=== PATIENT | female | born 1975 | race Caucasian/White ===

== ENCOUNTER 2017-02-19 19:39 | Emergency (ER) | payer BC ==
[2017-02-19] MEDS ORDERED: KETOROLAC TROMETHAMINE INJ 60 MG/2 ML VIAL IM ONE (21:38)
[2017-02-19] MEDS ORDERED: TETANUS,DIPHTHERIA,PERTUSSIS 1 EA SYG IM ONE (21:39)
--- NOTE | 2017-02-19 22:31 | RAD ---
EXAM DESCRIPTION: Hand left 3 Views (accession [id number]), Wrist, left 2 Views (accession [id number]), Forearm, left (accession [id number]) CLINICAL HISTORY: fell onto left hand pain COMPARISON: None. FINDINGS: AP, lateral and oblique views of the left wrist and hand, and two views of the left forearm were submitted. There is no discrete acute fracture or dislocation. Bone mineralization is within normal limits. There is no radiopaque foreign body material. IMPRESSION: No acute fracture or dislocation. Electronically signed by: Grayson Javier MD 02/19/2017 10:30 PM CDT
--- NOTE | 2017-02-19 22:32 | RAD ---
EXAM DESCRIPTION: Hand left 3 Views (accession [id number]), Wrist, left 2 Views (accession [id number]), Forearm, left (accession [id number]) CLINICAL HISTORY: fell onto left hand pain COMPARISON: None. FINDINGS: AP, lateral and oblique views of the left wrist and hand, and two views of the left forearm were submitted. There is no discrete acute fracture or dislocation. Bone mineralization is within normal limits. There is no radiopaque foreign body material. IMPRESSION: No acute fracture or dislocation. Electronically signed by: Grayson Javier MD 02/19/2017 10:30 PM CDT
--- NOTE | 2017-02-19 22:32 | RAD ---
EXAM DESCRIPTION: Hand left 3 Views (accession [id number]), Wrist, left 2 Views (accession [id number]), Forearm, left (accession [id number]) CLINICAL HISTORY: fell onto left hand pain COMPARISON: None. FINDINGS: AP, lateral and oblique views of the left wrist and hand, and two views of the left forearm were submitted. There is no discrete acute fracture or dislocation. Bone mineralization is within normal limits. There is no radiopaque foreign body material. IMPRESSION: No acute fracture or dislocation. Electronically signed by: Grayson Javier MD 02/19/2017 10:30 PM CDT
--- NOTE | 2017-02-19 22:56 | ED.PDOC ---
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 She now has severe pain in the right wrist. She is unable to move her thumb. She has numbness i her thumb. Timing/Duration: 1-3 hours Severity: severe Improving Factors: immobilization Worsening Factors: movement Associated Symptoms: denies symptoms Allergies/Adverse Reactions: Allergies NO KNOWN ALLERGY Allergy (Verified 02/19/17 20:53) Home Medications: Ambulatory Orders Adderall 02/19/17 Estrogens, Conjugated 02/19/17 Lisinopril & Hydrochlorothiazi [Lisinopril/Hctz 10-12.5 mg] 1 tab PO 02/19/17 Metformin HCl 500 mg PO 02/19/17 Paxil 02/19/17 Simvastatin 02/19/17 Temazepam 30 mg PO 02/19/17 tiZANidine [Zanaflex] 4 mg PO TID PRN #30 tab 02/19/17 Review of Systems - Review of Systems Constitutional: States: no symptoms reported EENTM: States: no symptoms reported Respiratory: States: no symptoms reported Cardiology: States: no symptoms reported Gastrointestinal/Abdominal: States: no symptoms reported Genitourinary: States: no symptoms reported Musculoskeletal: States: joint pain, joint swelling, muscle pain Skin: States: change in color Neurological: States: numbness, tingling Endocrine: States: no symptoms reported Hematologic/Lymphatic: States: no symptoms reported All other Systems: Reviewed and Negative Past Medical History (General) - Patient Medical History Hx Hypertension: Yes Hx Diabetes: Yes - Vaccination History Hx Tetanus, Diphtheria Vaccination: No - over 8 years ago Hx Influenza Vaccination: Yes - Female History Patient is a Female of Child Bearing Age (10 -59 yrs old): No Patient : No - hysterectomy Family Medical History - Family History Mother Family History: Unknown Physical Exam - Physical Exam General Appearance: Alert, Comfortable, Obvious distress - Holding her right wrist so it won't move. Ears, Nose, Throat: hearing grossly normal, normal ENT inspection Neck: full range of motion, supple Respiratory: lungs clear, normal breath sounds, no respiratory distress, no accessory muscle use Cardiovascular/Chest: regular rate, rhythm, no edema, no murmur Gastrointestinal/Abdominal: normal bowel sounds, non tender, soft, no organomegaly Back Exam: no vertebral tenderness Extremity: inflammation, swelling, other - Right wrist--ecchymosis and swelling to the thenar area of the hand. Decreased ROM of her thumb due to pain. She is able to move her fingers. Her elbow has normal ROM. Neurologic: alert, normal mood/affect, oriented x 3 Skin Exam: other - Significant ecchymosis to thenar right wrist/hand Progress - Progress Progress: 02/19/17 22:59 Patient was put in a wrist splint. We discussed that x-rays do not evaluate tendons and if she should have continuing pain and decreased ROM, she needs to follow up with either her PCP or Ortho. At the end of her stay, Patient noted that she had some neck stiffness. She continued to have full ROM of the neck and no vertebral tenderness. She had mild paraspinal muscle spasm. Therefore, I will give her a muscle relaxer for the muscle spasm. - Results/Orders Results/Orders: 02/19/17 20:49 Temperature 98.8 F Pulse Rate [ 90 Right] Respiratory 16 Rate Blood Pressure 127/96 [Left Arm] O2 Sat by Pulse 96 Oximetry - EKG/XRAY/CT XRAY: hand - Right - No fractures - Additional EKG/XRAY/Consults XRAY #2: wrist Comments: Right - no fracture XRAY #3: forearm - Right - no fracture Departure - Departure Clinical Impression: Right wrist sprain Qualifiers: Encounter type: initial encounter Qualified Code(s): S63.501A - Unspecified sprain of right wrist, initial encounter Neck muscle strain Qualifiers: Encounter type: initial encounter Qualified Code(s): S16.1XXA - Strain of muscle, fascia and tendon at neck level, initial encounter Time of Disposition: 23:03 Disposition: Discharge to Home or Self Care Condition: Excellent Departure Forms: ED Discharge - Pt. Copy, Patient Portal Self Enrollment Instructions: Wrist Sprain, DI for Wrist Sprain, Neck Sprain, DI for Neck Sprain Diet: resume usual diet Referrals: Manuel Quinones MD [Primary Care Provider] - 1-2 Weeks Prescriptions: tiZANidine [Zanaflex] 4 mg PO TID PRN #30 tab PRN Reason: Muscle Spasms Home Medications: Ambulatory Orders Adderall 02/19/17 Estrogens, Conjugated 02/19/17 Lisinopril & Hydrochlorothiazi [Lisinopril/Hctz 10-12.5 mg] 1 tab PO 02/19/17 Metformin HCl 500 mg PO 02/19/17 Paxil 02/19/17 Simvastatin 02/19/17 Temazepam 30 mg PO 02/19/17 tiZANidine [Zanaflex] 4 mg PO TID PRN #30 tab 02/19/17 Additional Instructions: Follow up with PCP if symptoms persist. Follow up in ED for pain not relieved with analgesics.
[2017-02-19 23:30] VITALS: BP 124/72; TEMP 97.5; O2SAT 98
== END 2017-02-19 23:32 | disposition home or self-care (01) ==
LOC: ER 19:39
DX: S63.501A Unspecified sprain of right wrist, initial encounter (principal); S16.1XXA Strain of muscle, fascia and tendon at neck level, initial encounter; I10 Essential (primary) hypertension; E11.9 Type 2 diabetes mellitus without complications; Z79.899 Other long term (current) drug therapy; Z23 Encounter for immunization; W01.0XXA Fall on same level from slipping, tripping and stumbling without subsequent striking against object, initial encounter; Y92.9 Unspecified place or not applicable

== ENCOUNTER → 2017-02-26 | Outpatient (CLI) | payer BC | END | disposition home or self-care (01) | LOC: LAB.O 15:20 | PROVIDERS: ATTEND Obstetrics & Gynecology | DX: R53.81 Other malaise (principal); R19.5 Other fecal abnormalities ==

== ENCOUNTER → 2017-07-21 | Outpatient (CLI) | payer BC ==
--- NOTE | 2017-07-23 14:37 | RAD ---
EXAM DESCRIPTION: Knee,Left 2 or More Views CLINICAL HISTORY: 41 years, Female, JOINT PAIN COMPARISON: None TECHNIQUE: AP/lateral views of the left knee FINDINGS: There is no bone, joint, or soft tissue abnormality observed. IMPRESSION: 1. Normal Electronically signed by: Jasiel Shah MD 07/23/2017 2:36 PM CDT
--- NOTE | 2017-07-23 14:37 | RAD ---
EXAM DESCRIPTION: Foot,Right 3 Views CLINICAL HISTORY: 41 years, Female, JOINT PAIN COMPARISON: None TECHNIQUE: AP, lateral, and oblique views of the right foot FINDINGS: There is no bone, joint, or soft tissue abnormality observed. There is no radiopaque foreign body. IMPRESSION: Normal Electronically signed by: Jasiel Shah MD 07/23/2017 2:35 PM CDT
--- NOTE | 2017-07-23 14:38 | RAD ---
EXAM DESCRIPTION: Knee,Right 2 or More Views CLINICAL HISTORY: 41 years, Female, JOINT PAIN COMPARISON: None TECHNIQUE: AP/lateral standing views of the right knee FINDINGS: There is no bone, joint, or soft tissue abnormality observed. IMPRESSION: 1. Normal Electronically signed by: Jasiel Shah MD 07/23/2017 2:36 PM CDT
--- NOTE | 2017-07-23 14:38 | RAD ---
EXAM DESCRIPTION: Hand,Right 2 Views (accession [id number]), Hand,Left 2 Views (accession [id number]) CLINICAL HISTORY: 41 years,Female,JOINT PAIN COMPARISON: None FINDINGS: The bilateral hand demonstrates no evidence of fractures or acute abnormalities. Soft tissues appear unremarkable. Joints unremarkable IMPRESSION: Unremarkable bilateral hands Electronically signed by: Kwan Forbes MD 07/23/2017 2:36 PM CDT
--- NOTE | 2017-07-23 14:38 | RAD ---
EXAM DESCRIPTION: Hand,Right 2 Views (accession [id number]), Hand,Left 2 Views (accession [id number]) CLINICAL HISTORY: 41 years,Female,JOINT PAIN COMPARISON: None FINDINGS: The bilateral hand demonstrates no evidence of fractures or acute abnormalities. Soft tissues appear unremarkable. Joints unremarkable IMPRESSION: Unremarkable bilateral hands Electronically signed by: Kwan Forbes MD 07/23/2017 2:36 PM CDT
--- NOTE | 2017-07-23 14:38 | RAD ---
EXAM DESCRIPTION: Foot,Left 3 Views CLINICAL HISTORY: 41 years, Female, JOINT PAIN COMPARISON: None TECHNIQUE: AP, lateral, and oblique views of the left foot FINDINGS: There is no bone, joint, or soft tissue abnormality observed. There is no radiopaque foreign body. IMPRESSION: Normal left foot Electronically signed by: Jasiel Shah MD 07/23/2017 2:37 PM CDT
== END | disposition home or self-care (01) ==
LOC: LAB.O 12:51
PROVIDERS: ATTEND Obstetrics & Gynecology
DX: M25.562 Pain in left knee (principal); R73.02 Impaired glucose tolerance (oral); M25.561 Pain in right knee; M79.642 Pain in left hand; M79.641 Pain in right hand; M79.672 Pain in left foot; M79.671 Pain in right foot

== ENCOUNTER → 2018-01-25 | Outpatient (CLI) | payer BC ==
--- NOTE | 2018-01-28 10:13 | MAM ---
EXAM DESCRIPTION: 3D Screening BILATERAL : Digital Mammography. CLINICAL HISTORY: 42 years Female SCREENING . No complaints. No family history of breast cancer. Hysterectomy. Currently on HRT. Benign left breast biopsy.. COMPARISON: No prior studies available. No prior reports available. TECHNIQUE: Bilateral CC and MLO projection full-field images, 3-D tomosynthesis digital mammographic technique. Also bilateral synthesized CC/ MLO full-field images. CAD not utilized. FINDINGS: The breast parenchymal density pattern is: Heterogeneously dense breast tissue, which may obscure small masses. No skin thickening or nipple retraction bilateral solitary microcalcifications. Left breast axillary lymph node. No focal, stellate mass or density, focal asymmetry , and no suspicious microcalcifications bilaterally. IMPRESSION: BI-RADS CATEGORY: 2 - BENIGN FINDINGS. FOLLOW UP: Routine digital bilateral screening, one year interval from December 2017. Written communication explaining the IMPRESSION and follow-up, will be mailed to the patient and referring health care provider. According to the [employer], yearly mammograms are recommended starting at age 40 and continuing as long as a woman is in good health. Any breast change noted on a breast self-exam should be reported promptly to the patient's healthcare provider. Breast MRI is recommended for women with an approximately 20-25% or greater lifetime risk of breast cancer, including women with a strong family history of breast or ovarian cancer and women who have been treated for Hodgkin's disease. A negative mammographic report should not delay tissue diagnosis in patients with significant clinical history or physical findings. Extremely dense breast tissue limits the sensitivity of digital mammography. Electronically signed by: Hernesto Martin MD 01/28/2018 10:11 AM CDT
== END ==
LOC: RAD 11:32
PROVIDERS: ATTEND Obstetrics & Gynecology
DX: Z12.31 Encounter for screening mammogram for malignant neoplasm of breast (principal)

== ENCOUNTER → 2018-07-18 | Outpatient (CLI) | payer BC ==
--- NOTE | 2018-07-18 12:15 | RAD ---
EXAM DESCRIPTION: Chest,2 Views CLINICAL HISTORY: PRE OP COMPARISON: Previous study October 08, 2016 TECHNIQUE: PA/lateral FINDINGS: There is no acute appearing cardiac or pulmonary abnormality. Heart size is normal with normal pulmonary vascularity. No pleural effusion or pneumothorax. Lungs are clear with no consolidating infiltrate. Lateral view shows intact sternum and T-spine. IMPRESSION: No acute process is identified in the chest. Electronically signed by: Dez Aguilar MD 07/18/2018 12:14 PM CDT
== END ==
LOC: RAD 11:16
PROVIDERS: ATTEND Nurse Practitioner Family
DX: Z01.818 Encounter for other preprocedural examination (principal)

== ENCOUNTER → 2019-04-07 | Outpatient (CLI) | payer BC ==
--- NOTE | 2019-04-07 15:40 | RAD ---
EXAM DESCRIPTION: Foot,Right 3 Views CLINICAL HISTORY: 43 years, Female, OSTEOMYELITIS COMPARISON: None TECHNIQUE: AP, lateral, and oblique views of the right foot FINDINGS: Screws are seen in the diaphysis of the right first metatarsal. Subchondral degenerative cystic changes in the head of the first metatarsal with marked narrowing of the first metatarsal phalangeal joint. No fractures of the bones of the toes or metatarsals. No bony destructive lesion. Cystic changes are seen in the base of the proximal phalanx of the great toe with small cysts around the interphalangeal joint as well. These findings suggest the possibility of gout. Clinical correlation recommended. Lateral view shows intact talus and calcaneus. Small plantar and dorsal calcaneal enthesophytes. IMPRESSION: No bony destructive lesion to suggest osteomyelitis. Electronically signed by: Dez Aguilar MD 04/07/2019 3:37 PM CDT
--- NOTE | 2019-04-10 17:24 | MAM ---
EXAM DESCRIPTION: 3D Screening BILATERAL : Digital Mammography. CLINICAL HISTORY: 43 years Female SCREEN . No complaints. No personal or family history of breast cancer. Remote family history of ovarian cancer. Hysterectomy one year ago. Childbirth. Currently on HRT. Prior benign cyst aspiration biopsy left breast Lifetime risk of developing breast cancer (Tyrer-Cuzick model)(%): 10.9. COMPARISON: Bilateral screening digital breast tomosynthesis 01/25/2018.. TECHNIQUE: Bilateral CC and MLO projection full-field images, digital tomosynthesis mammographic technique. Bilateral digital 2-D full-field MLO images. CAD not available for tomosynthesis or 2-D images. FINDINGS: The breast parenchymal density pattern is: Scattered areas of fibroglandular density. No skin thickening or nipple retraction. No new focal, stellate mass or density, focal asymmetry , and no suspicious microcalcifications bilaterally. Stable mammograms compared to prior study. IMPRESSION: Negative findings. BI-RADS CATEGORY: 1 - NEGATIVE FOLLOW UP: Routine digital bilateral screening, one year interval from April 2019. Written communication explaining the findings and follow-up, will be mailed to the patient and referring health care provider. According to the [employer], yearly mammograms are recommended starting at age 40 and continuing as long as a woman is in good health. Any breast change noted on a breast self-exam should be reported promptly to the patient's healthcare provider. Breast MRI is recommended for women with an approximately 20-25% or greater lifetime risk of breast cancer, including women with a strong family history of breast or ovarian cancer and women who have been treated for Hodgkin's disease. A negative mammographic report should not delay tissue diagnosis in patients with significant clinical history or physical findings. Extremely dense breast tissue limits the sensitivity of digital mammography. Electronically signed by: Hernesto Martin MD 04/10/2019 5:22 PM CDT
== END ==
LOC: RAD 11:54
PROVIDERS: ATTEND Obstetrics & Gynecology
DX: Z12.31 Encounter for screening mammogram for malignant neoplasm of breast (principal); M86.171 Other acute osteomyelitis, right ankle and foot